=== PATIENT | male | born 1970 | race Caucasian/White ===

== ENCOUNTER → 2025-07-11 | Outpatient (CLI) | payer OTHER | LOC: M PLAIMG 07:49 | PROVIDERS: ATTEND Neurological Surgery | DX: M50.00 Cervical disc disorder with myelopathy, unspecified cervical region (principal) ==

== ENCOUNTER 2025-08-06 06:21 | Inpatient (IN) | payer OTHER ==
[~2025-08-06] VITALS: Ht 177.8 cm; Wt 102.1 kg
[2025-08-06] VITALS (22 sets, daily range): BP systolic 101–193; BP diastolic 64–87; TEMP 98.3–98.7; O2SAT 93–99
[~2025-08-06 06:21] MED LIST: ATOR1TAB21 PO; BRIN1TAB3 PO; BUPR1SUB5 SL; CYCL-707 PO; HYDR-3363 PO; IBUP200C35 PO; LIDO5TD TOP; LOSA100T46 PO; NARC1SPR; SEMA2PEN SQ; SYNJ1TAB PO; TADA20TA29 PO
[2025-08-06] MEDS: SCOPOLAMINE 1MG TRANSDERMAL PATCH TOP ONE (06:50)
[2025-08-06] MEDS ORDERED: LIDOCAINE 2% 100 MG/5 ML SDV (FOR ANES.) As Ordered ONE (06:57)
[2025-08-06] MEDS ORDERED: PROPOFOL 1,000 MG/100 ML VIAL As Ordered ONE (07:00)
[2025-08-06] MEDS: FAMOTIDINE 20 MG/2 ML VIAL IVP ONE (07:00)
[2025-08-06] MEDS ORDERED: ONDANSETRON 4MG 2ML VIAL As Ordered ONE (07:02)
[2025-08-06] MEDS ORDERED: dexAMETHasone 4 MG/ML 1 ML VIAL As Ordered ONE (07:03)
[2025-08-06] MEDS ORDERED: REMIFENTANIL 1MG VIAL As Ordered ONE (07:05)
[2025-08-06] MEDS ORDERED: MIDAZOLAM INJ 2 MG/2 ML VIAL As Ordered ONE (07:05)
[2025-08-06] MEDS: IPRATROPIUM 0.5 MG/ALBUTEROL 2.5 MG INH SOL UD 3 ML NEB ONE (07:27)
[2025-08-06] MEDS: ceFAZolin SOD 2 GM IV ONCE IV ONE (07:35)
[2025-08-06] MEDS ORDERED: ROCURONIUM BROMIDE 50MG/5ML VIAL As Ordered ONE (07:41)
[2025-08-06] MEDS ORDERED: KETAMINE HCL 200 MG/20 ML VIAL As Ordered ONE (07:49)
[2025-08-06] MEDS ORDERED: dexmedeTOMIDine (4 MCG/ML) 200 MCG/50 ML BTL As Ordered ONE (07:50)
[2025-08-06] MEDS: LIDOCAINE W/EPINEPHrine 1% 20 ML VIAL As Ordered ONE (15:30)
[2025-08-06] MEDS ORDERED: MORPHINE 4 MG/ML 1 ML VIAL IV PRN (16:10)
[2025-08-06] MEDS ORDERED: HYDROMORPHONE HCL 0.5 MG/0.5 ML SYRINGE IV PRN (16:10)
[2025-08-06] MEDS ORDERED: LABETALOL 100 MG/20 ML VIAL As Ordered ONE (16:19)
[2025-08-06] MEDS ORDERED: NS (Normal Saline) 0.9% 1,000 ML IV ONE (16:20)
[2025-08-06] MEDS: NS (Normal Saline) 0.9% 1,000 ML IV ONE (16:20)
[2025-08-06] MEDS ORDERED: ACETAMINOPHEN 325 MG TAB PO SCH (16:20)
[2025-08-06] MEDS ORDERED: hydrALAZINE 20 MG/ML 1 ML VIAL IV PRN (16:20)
[2025-08-06] MEDS ORDERED: CYCLOBENZAPRINE 10 MG TABLET PO PRN (16:20)
[2025-08-06] MEDS ORDERED: GLUCOSE 4 GM CHEW PO PRN (16:20)
[2025-08-06] MEDS ORDERED: GLUCAGON INJ 1 MG VIAL SC PRN (16:20)
[2025-08-06] MEDS ORDERED: DEXTROSE 50% 50 ML SYRINGE IV PRN (16:20)
[2025-08-06] MEDS ORDERED: ONDANSETRON 4MG 2ML VIAL IV PRN (16:20)
[2025-08-06] MEDS: niCARdipine IV 40 MG in IV 1 EA IV SCH (16:50)
[2025-08-06] MEDS: hydrALAZINE 20 MG/ML 1 ML VIAL IV STA (16:50)
[2025-08-06] MEDS ORDERED: hydrALAZINE 20 MG/ML 1 ML VIAL As Ordered ONE (16:50)
[2025-08-06] MEDS ORDERED: niCARdipine 40 MG IN 200 ML NACL IV BAG As Ordered ONE (17:00)
[2025-08-06] MEDS ORDERED: ESMOLOL 100 MG/10 ML VIAL As Ordered ONE (17:06)
[2025-08-06] MEDS: INSULIN LISPRO (NovoLOG) PER UNIT SC SCH ×2 (17:30→21:00)
[2025-08-06] MEDS: ACETAMINOPHEN *IV* 1,000 MG in IV 1 EA IV SCH (18:00)
[2025-08-06 18:19] LABS: VENOUS BASE EXCESS 1.0 (-2.0-2.0); VENOUS HCO3 25.6 MMOL/L (23.0-27.0); VENOUS O2 SATURATION 98.7 % (60.0-80.0); VENOUS PARTIAL PRESSURE CO2 40.5 mmHg (38.0-50.0); VENOUS PARTIAL PRESSURE O2 166.9 mmHg (30.0-50.0); VENOUS PH 7.418 UNITS (7.330-7.430); VENOUS STANDARD HCO3 25.4 MMOL/L; VENOUS TOTAL CO2 26.8 MMOL/L (24.0-28.0)
[2025-08-06] MEDS: SENNA 8.6 MG TAB PO SCH (21:00)
[2025-08-06] MEDS: DOCUSATE SODIUM 100 MG CAPSULE PO SCH (21:00)
[2025-08-06] MEDS: ceFAZolin SODIUM 2 GM in DEXTROSE 5% (D5W) ADV/MINI-BAG 50 ML IV SCH (21:45)
[2025-08-06] MEDS ORDERED: BUPR1FIL SL (23:32)
[2025-08-06] MEDS ORDERED: HOME MED LIST COMPLETE! XX SCH (23:35)
[2025-08-06] MEDS: LOSARTAN 50 MG TABLET PO ONE (23:37)
[2025-08-06] MEDS ORDERED: SUBO2MIS SL (23:44)
[2025-08-07] VITALS (29 sets, daily range): BP systolic 116–197; BP diastolic 61–98; TEMP 97.4–98.6; O2SAT 88–99
[2025-08-07 00:27] LABS: VENOUS BASE EXCESS 0.0 (-2.0-2.0); VENOUS HCO3 25.1 MMOL/L (23.0-27.0); VENOUS O2 SATURATION 99.4 % (60.0-80.0); VENOUS PARTIAL PRESSURE CO2 42.2 mmHg (38.0-50.0); VENOUS PARTIAL PRESSURE O2 193.9 mmHg (30.0-50.0); VENOUS PH 7.392 UNITS (7.330-7.430); VENOUS STANDARD HCO3 24.6 MMOL/L; VENOUS TOTAL CO2 26.4 MMOL/L (24.0-28.0)
[2025-08-07] MEDS: ACETAMINOPHEN *IV* 1,000 MG in IV 1 EA IV SCH (02:10)
[2025-08-07 04:23] LABS: VENOUS BASE EXCESS -1.7 (-2.0-2.0); VENOUS HCO3 22.1 MMOL/L (23.0-27.0); VENOUS O2 SATURATION 99.5 % (60.0-80.0); VENOUS PARTIAL PRESSURE CO2 35.0 mmHg (38.0-50.0); VENOUS PARTIAL PRESSURE O2 245.0 mmHg (30.0-50.0); VENOUS PH 7.418 UNITS (7.330-7.430); VENOUS STANDARD HCO3 23.1 MMOL/L; VENOUS TOTAL CO2 23.2 MMOL/L (24.0-28.0)
[2025-08-07 04:28] LABS: PLATELET COUNT, AUTOMATED 184 10^3/uL (150-450)
[2025-08-07 04:51] LABS: CALCIUM LEVEL 9.3 MG/DL (8.5-10.1); CARBON DIOXIDE LEVEL 24 MMOL/L (20-31); CHLORIDE LEVEL 108 MMOL/L (98-107); CREATININE FOR GFR 0.92 MG/DL (0.70-1.30); GLOMERULAR FILTRATION RATE > 90.0 (>56); POTASSIUM SERUM 3.8 MMOL/L (3.5-5.1); SODIUM LEVEL 145 MMOL/L (136-145)
[2025-08-07] MEDS: METOPROLOL 5 MG/5 ML VIAL IV PRN (07:37)
[2025-08-07] MEDS ORDERED: LIDOCAINE 5% PATCH TOP PRN (09:25)
[2025-08-07] MEDS: LOSARTAN 50 MG TABLET PO SCH (09:38)
[2025-08-07] MEDS: ATORVASTATIN 20 MG TAB PO SCH (09:38)
[2025-08-07] MEDS: PANTOPRAZOLE 40MG VIAL IV SCH (09:38)
[2025-08-07] MEDS: BUPRENORPHINE/NALOXONE 2-0.5MG SUBLINGUAL TABLET(SUBOXONE) SL SCH (12:04)
[2025-08-07] MEDS: amLODIPine 5 MG TAB PO ONE ×2 (12:35→16:01)
[2025-08-07] MEDS: RAMELTEON 8 MG TAB PO SCH (20:55)
[2025-08-07] MEDS: traZODone 100 MG TAB PO SCH (20:56)
[2025-08-07] MEDS ORDERED: HEPARIN SOD 5000 UNITS/ML 1 ML VIAL/SYRINGE SQ SCH (21:00)
[2025-08-08] VITALS: BP 108/57; TEMP 97.9; O2SAT 97
[2025-08-08 02:00] VITALS: BP 116/66
[2025-08-08 04:00] VITALS: BP 125/60; TEMP 98; O2SAT 98
[2025-08-08 06:00] VITALS: BP 133/68
[2025-08-08 06:13] LABS: PLATELET COUNT, AUTOMATED 159 10^3/uL (150-450)
[2025-08-08 06:34] LABS: CALCIUM LEVEL 9.0 MG/DL (8.5-10.1); CARBON DIOXIDE LEVEL 28 MMOL/L (20-31); CHLORIDE LEVEL 105 MMOL/L (98-107); CREATININE FOR GFR 0.83 MG/DL (0.70-1.30); GLOMERULAR FILTRATION RATE > 90.0 (>56); POTASSIUM SERUM 3.8 MMOL/L (3.5-5.1); SODIUM LEVEL 145 MMOL/L (136-145)
[2025-08-08 07:43] VITALS: BP 144/79; TEMP 97.3; O2SAT 96
[2025-08-08] MEDS: PANTOPRAZOLE 40MG TAB PO SCH (08:24)
[2025-08-08 08:25] VITALS: BP 144/79
[2025-08-08] MEDS: amLODIPine 10 MG TAB PO SCH (08:25)
[2025-08-08] MEDS ORDERED: AMLO1TAB25 PO (09:29)
== END 2025-08-08 13:53 | disposition home or self-care (01) | DRG 473 ==
LOC: M SDC 06:21 → M RR INP 06:22 → EDUNIT# 07:30 → OBSVTOIN 17:22 → M ICU 18:22
PROVIDERS: ADMIT Internal Medicine; ATTEND Internal Medicine
PROC: 0RG20A0 Fusion of 2 or more Cervical Vertebral Joints with Interbody Fusion Device, Anterior Approach, Anterior Column, Open Approach (ICD-10-PCS; principal; 2025-08-07)
PROC: 0RB30ZZ Excision of Cervical Vertebral Disc, Open Approach (ICD-10-PCS; 2025-08-07)
DX: M48.02 Spinal stenosis, cervical region (principal); M25.78 Osteophyte, vertebrae; I10 Essential (primary) hypertension; E11.9 Type 2 diabetes mellitus without complications; E78.5 Hyperlipidemia, unspecified; K76.0 Fatty (change of) liver, not elsewhere classified; F32.A Depression, unspecified; F41.9 Anxiety disorder, unspecified; F43.10 Post-traumatic stress disorder, unspecified; M19.90 Unspecified osteoarthritis, unspecified site; K21.9 Gastro-esophageal reflux disease without esophagitis; N52.9 Male erectile dysfunction, unspecified; Z79.85 Long-term (current) use of injectable non-insulin antidiabetic drugs; Z79.84 Long term (current) use of oral hypoglycemic drugs; Z79.899 Other long term (current) drug therapy; Z91.013 Allergy to seafood; I16.0 Hypertensive urgency

== ENCOUNTER → 2025-09-18 | Outpatient (CLI) | payer OTHER ==
[~2025-09-18] MED LIST changes: +AMLO1TAB25 PO; +BUPR1FIL SL; +SUBO2MIS SL
== END ==
LOC: M RAD 09:10
PROVIDERS: ATTEND Neurological Surgery
DX: M47.12 Other spondylosis with myelopathy, cervical region (principal); Z98.890 Other specified postprocedural states